=== PATIENT | female | born 1995 | race Caucasian/White ===

== ENCOUNTER → 2020-08-28 | Outpatient (CLI) | payer OTHER ==
[~2020-08-28] MED LIST: Cefpodoxime Pr100 MG PO; IBU800 MG; IRON18 MG; Norco 10-325 T1 EACH PO; PRENATAL TABLE1 EAC2 PO; Zofran Odt4 MG SL
== END | disposition home or self-care (01) ==
LOC: LAB SHORT 09:51 → LAB 09:51
DX: O09.893 Supervision of other high risk pregnancies, third trimester (principal)
CPT/HCPCS: 87081; 87150

== ENCOUNTER 2020-09-24 13:00 | Inpatient (IN) | payer OTHER ==
[~2020-09-24] VITALS: Ht 165.1 cm; Wt 91.6 kg
[~2020-09-24 13:00] MED LIST changes: -IBU800 MG; -IRON18 MG; -PRENATAL TABLE1 EAC2 PO
[2020-09-24 13:52] LABS: Source, Urine Clean Catch
[2020-09-24 13:56] LABS: Appearance, Urine Cloudy (Clear); Bilirubin, Urine Neg (Neg); Blood, Urine 5+ (Neg); Color, Urine Yellow (P-Yellow); Glucose Qualitative, Urine Neg (Neg); Ketones, Urine 2+ (Neg); Leukocyte Esterase, Urine 3+ (Neg); Nitrite, Urine Neg (Neg); Protein, Urine 2+ (Neg); Urobilinogen, Urine NORM (Normal)
[2020-09-24 14:06] LABS: Bacteria Many /hpf; Squamous Epithelial Cells Many /hpf (Few); White Blood Cells, Urine TNTC /hpf (0-5)
[2020-09-24 14:39] LABS: SARS-Cov-2 (COVID-19) PCR, MMC NEGATIVE (NEGATIVE)
[2020-09-24 15:25] LABS: BASOPHILS ABSOLUTE AUTO 0.03 K/mm3 (0.00-0.23); BASOPHILS PERCENT AUTO 0 % (0-2); EOSINOPHILS ABSOLUTE AUTO 0.04 K/mm3 (0.00-0.68); EOSINOPHILS PERCENT AUTO 0 % (0-6); Hemoglobin 12.6 g/dL (11.5-16.0); IMMATURE GRAN ABSOLUTE AUTO 0.14 K/mm3 (0.00-0.10); IMMATURE GRAN PERCENT AUTO 1 % (0-1); LYMPHOCYTES ABSOLUTE AUTO 1.49 K/mm3 (0.84-5.20); LYMPHOCYTES PERCENT AUTO 10 % (21-46); MONOCYTES ABSOLUTE AUTO 0.68 K/mm3 (0.16-1.47); MONOCYTES PERCENT AUTO 4 % (4-13); Mean Corpuscular HGB 30.8 pg (26.0-34.0); Mean Corpuscular HGB Conc 34.1 g/dL (31.5-36.5); Mean Corpuscular Volume 91 fL (80-100); Mean Platelet Volume 12.2 fL (9.1-12.4); NEUTROPHILS ABSOLUTE AUTO 13.07 K/mm3 (1.96-9.15); NEUTROPHILS PERCENT AUTO 85 % (41-73); Platelet Count 173 K/mm3 (150-400); RDW Coefficient Variation 15.2 % (11.7-14.2); RDW Standard Deviation 49.7 fL (35.1-46.3); Red Blood Cell Count 4.09 M/mm3 (3.80-5.20); White Blood Cell Count 15.45 K/mm3 (4.00-11.30)
[2020-09-24] MEDS ORDERED: IRON18 MG (15:46)
[2020-09-24] MEDS ORDERED: PRENATAL TABLE1 EAC2 PO (15:46)
[2020-09-25 11:05] LABS: Hematocrit 32.9 % (33.0-51.0); Hemoglobin 11.1 g/dL (11.5-16.0); Mean Corpuscular HGB 31.1 pg (26.0-34.0); Mean Corpuscular HGB Conc 33.7 g/dL (31.5-36.5); Mean Corpuscular Volume 92 fL (80-100); Mean Platelet Volume 12.4 fL (9.1-12.4); Platelet Count 160 K/mm3 (150-400); RDW Coefficient Variation 15.5 % (11.7-14.2); Red Blood Cell Count 3.57 M/mm3 (3.80-5.20); White Blood Cell Count 18.53 K/mm3 (4.00-11.30)
--- NOTE | 2020-09-25 17:57 | NUR ---
DISCHARGE INSTRUCTIONS, WRITTEN AND VERBAL, GIVEN TO PT AND Guido LONG. ANSWERED ALL QUESTIONS AND CONCERNS.
[2020-09-26] MEDS ORDERED: IBU800 MG (12:17)
--- NOTE | 2020-09-26 17:07 | NUR ---
DISCHARGED TO BORDER
== END 2020-09-26 17:20 | disposition home or self-care (01) | DRG 807 ==
LOC: OBS 13:00 → BC 13:00 → OBS 14:29 → BC 14:32
PROVIDERS: ADMIT Advanced Practice Midwife
PROC: 10E0XZZ Delivery of Products of Conception, External Approach (ICD-10-PCS; principal; 2020-09-25)
PROC: 10907ZC Drainage of Amniotic Fluid, Therapeutic from Products of Conception, Via Natural or Artificial Opening (ICD-10-PCS; 2020-09-25)
PROC: 00HU33Z Insertion of Infusion Device into Spinal Canal, Percutaneous Approach (ICD-10-PCS; 2020-09-25)
PROC: 3E0R3BZ Introduction of Anesthetic Agent into Spinal Canal, Percutaneous Approach (ICD-10-PCS; 2020-09-25)
PROC: 0KQM0ZZ Repair Perineum Muscle, Open Approach (ICD-10-PCS; 2020-09-25)
PROC: 0UQMXZZ Repair Vulva, External Approach (ICD-10-PCS; 2020-09-25)
DX: O24.420 Gestational diabetes mellitus in childbirth, diet controlled (principal); Z37.0 Single live birth; Z20.822 Contact with and (suspected) exposure to COVID-19; O99.02 Anemia complicating childbirth; Z3A.39 39 weeks gestation of pregnancy; Z67.40 Type O blood, Rh positive; O70.1 Second degree perineal laceration during delivery; O77.0 Labor and delivery complicated by meconium in amniotic fluid; O69.81X0 Labor and delivery complicated by cord around neck, without compression, not applicable or unspecified
CPT/HCPCS: 36415; 81001; 82947; 85025; 85027; 86850; 86900; 86901; 99214; A9270; J1885; J2001; J2210; J2590; J3010; J7120; U0004

== ENCOUNTER → 2022-03-06 | Outpatient (CLI) | payer OTHER ==
[~2022-03-06] MED LIST changes: +IBU800 MG; +IRON18 MG; +PRENATAL TABLE1 EAC2 PO
[2022-03-08 04:08] LABS: CHLAMYDIA TRACHOMATIS, NAA Negative (Negative)
== END | disposition home or self-care (01) ==
LOC: LAB SHORT 14:33 → LAB 14:33
PROVIDERS: Obstetrics & Gynecology
DX: Z01.419 Encounter for gynecological examination (general) (routine) without abnormal findings (principal); Z11.3 Encounter for screening for infections with a predominantly sexual mode of transmission
CPT/HCPCS: 87491; 87591; G0123

== ENCOUNTER → 2022-08-13 | Outpatient (CLI) | payer OTHER | END | disposition home or self-care (01) | LOC: LAB SHORT 14:05 | DX: O09.93 Supervision of high risk pregnancy, unspecified, third trimester (principal) | CPT/HCPCS: 87081; 87150 ==

== ENCOUNTER 2022-09-03 08:00 | Inpatient (IN) | payer OTHER ==
[2022-09-03] VITALS (14 sets, daily range): BP systolic 95–125; BP diastolic 53–75
[~2022-09-03] VITALS: Ht 195.6 cm; Wt 89.5 kg
--- NOTE | 2022-09-03 13:24 | NUR ---
"Spiritual Care | Pt. request Pt. is awake in bed with her little girl when she welcomes my visit. Pt. is pleasant as I facilitated a lifew review and established rapport. Pt. displays evidence of berkley and relief that her labor happened quickly. Prayed for Pt. and gave a blessing for the baby. Pt. verbalized gratitude for the spiritual care visit."
[2022-09-04 03:45] VITALS: BP 115/65
[2022-09-04 08:17] VITALS: BP 120/73
== END 2022-09-04 11:30 | disposition home or self-care (01) | DRG 807 ==
LOC: OBS 08:00 → BC 08:00 → OBS 08:22 → BC 08:24
PROVIDERS: ADMIT Advanced Practice Midwife
PROC: 10E0XZZ Delivery of Products of Conception, External Approach (ICD-10-PCS; principal; 2022-09-03)
PROC: 0HQ9XZZ Repair Perineum Skin, External Approach (ICD-10-PCS; 2022-09-03)
DX: O24.420 Gestational diabetes mellitus in childbirth, diet controlled (principal); Z37.0 Single live birth; O62.3 Precipitate labor; O70.0 First degree perineal laceration during delivery; Z3A.38 38 weeks gestation of pregnancy
CPT/HCPCS: A9270; J2590; J7120

== ENCOUNTER → 2024-08-16 | Outpatient (CLI) | payer OTHER | LOC: LAB 15:45 → LAB SHORT 15:45 | DX: O09.93 Supervision of high risk pregnancy, unspecified, third trimester (principal) | CPT/HCPCS: 87081; 87150 ==

== ENCOUNTER 2024-09-10 11:55 | Inpatient (IN) | payer OTHER ==
[~2024-09-10] VITALS: Ht 165.1 cm; Wt 85.2 kg
[2024-09-10] VITALS (15 sets, daily range): BP systolic 103–134; BP diastolic 54–95
[2024-09-10] MEDS ORDERED: OXYTOCIN/RINGER'S LACTATE 500 ML IV PRN (12:25)
[2024-09-10] MEDS ORDERED: Acetaminophen 500 MG Tab PO PRN (12:25)
[2024-09-10] MEDS ORDERED: Misoprostol 200 MCG Tab BC PRN (12:25)
[2024-09-10] MEDS ORDERED: Lactated Ringer's 1,000 ML IV PRN (12:25)
[2024-09-10] MEDS ORDERED: Oxytocin 10 Unit / ML Vial IM PRN (12:25)
[2024-09-10] MEDS ORDERED: Ondansetron HCl 2 MG / ML 2ML Vial IV PRN (12:25)
[2024-09-10] MEDS ORDERED: Tranexamic Acid 100 ML IV SCH (12:25)
[2024-09-10] MEDS ORDERED: Methylergonovine Maleate 0.2MG / ML 1ML Amp IM PRN ×2 (12:25→13:50)
[2024-09-10] MEDS ORDERED: Carboprost Tromethamine 250 MCG/ML 1ML Amp IM PRN ×2 (12:25→13:45)
[2024-09-10] MEDS ORDERED: Misoprostol 200 MCG Tab PR PRN ×2 (12:25→13:40)
[2024-09-10] MEDS ORDERED: Calcium Carbonate 500 MG Tab Chew PO SCH (12:25)
[2024-09-10] MEDS ORDERED: ePHEDrine Sulfate 50 MG/ML 1ML Injection XX PRN (12:30)
[2024-09-10] MEDS ORDERED: Lactated Ringer's 1,000 ML IV SCH ×3 (12:30→13:50)
[2024-09-10] MEDS ORDERED: FentaNYL Citrate 50 MCG/ML 2 ML Injection IV PRN (12:30)
[2024-09-10] MEDS ORDERED: FentaNYL 2mcg/ml-Bup 0.1% Epd 250 ML EPI PRN (12:30)
[2024-09-10 12:37] LABS: BASOPHILS ABSOLUTE AUTO 0.04 K/mm3 (0.00-0.23); BASOPHILS PERCENT AUTO 0 % (0-2); EOSINOPHILS ABSOLUTE AUTO 0.08 K/mm3 (0.00-0.68); EOSINOPHILS PERCENT AUTO 1 % (0-6); Hematocrit 35.2 % (33.0-51.0); Hemoglobin 11.3 g/dL (11.5-16.0); IMMATURE GRAN ABSOLUTE AUTO 0.13 K/mm3 (0.00-0.10); IMMATURE GRAN PERCENT AUTO 1 % (0-1); LYMPHOCYTES ABSOLUTE AUTO 2.22 K/mm3 (0.84-5.20); LYMPHOCYTES PERCENT AUTO 19 % (21-46); MONOCYTES ABSOLUTE AUTO 0.58 K/mm3 (0.16-1.47); MONOCYTES PERCENT AUTO 5 % (4-13); Mean Corpuscular HGB 26.8 pg (26.0-34.0); Mean Corpuscular HGB Conc 32.1 g/dL (31.5-36.5); Mean Corpuscular Volume 84 fL (80-100); Mean Platelet Volume 10.9 fL (9.1-12.4); NEUTROPHILS ABSOLUTE AUTO 8.71 K/mm3 (1.96-9.15); NEUTROPHILS PERCENT AUTO 74 % (41-73); Platelet Count 281 K/mm3 (150-400); RDW Coefficient Variation 14.9 % (11.7-14.2); RDW Standard Deviation 45.1 fL (35.1-46.3); Red Blood Cell Count 4.21 M/mm3 (3.80-5.20); White Blood Cell Count 11.76 K/mm3 (4.00-11.30)
[2024-09-10] MEDS ORDERED: Witch Hazel/Glycerin PADS TOP PRN (13:45)
[2024-09-10] MEDS ORDERED: Docusate Sodium 100 MG Cap PO PRN (13:45)
[2024-09-10] MEDS ORDERED: Benzocaine Topical Anesthetic Spray 60GM TOP PRN (13:45)
[2024-09-10] MEDS ORDERED: OXYTOCIN/RINGER'S LACTATE 500 ML IV SCH (13:45)
[2024-09-10] MEDS ORDERED: Ibuprofen 400 MG Tab PO PRN (13:50)
[2024-09-10] MEDS ORDERED: Ketorolac Tromethamine 30mg Vial IV PRN (13:55)
--- NOTE | 2024-09-10 20:39 | NUR ---
ASSUMED CARE AT CHANGE OF SHIFT, PT RESTING IN BED AT THIS TIME, DENIES ANY PAIN OR DISCOMFORT AT THIS TIME. WELL.
[2024-09-11 04:08] VITALS: BP 114/57
[2024-09-11 08:26] VITALS: BP 120/71
[2024-09-11] MEDS ORDERED: Prenatal Vit/FE Fumarate/FA 1 Tab PO SCH (09:00)
[2024-09-11 11:50] VITALS: BP 125/86
== END 2024-09-11 16:00 | disposition home or self-care (01) | DRG 807 ==
LOC: OBS 11:55 → BC 11:58 → OBS 12:14 → BC 12:15
PROVIDERS: ADMIT Obstetrics & Gynecology
PROC: 10E0XZZ Delivery of Products of Conception, External Approach (ICD-10-PCS; principal; 2024-09-10)
DX: O24.420 Gestational diabetes mellitus in childbirth, diet controlled (principal); Z37.0 Single live birth; O99.02 Anemia complicating childbirth; O62.3 Precipitate labor; Z3A.39 39 weeks gestation of pregnancy; Z79.899 Other long term (current) drug therapy
CPT/HCPCS: 82947; 85025; 86850; 86900; 86901; J7120